=== PATIENT | female | born 1975 | race Caucasian/White ===

== ENCOUNTER 2024-09-06 12:02 | Inpatient (IN) | payer OTHER ==
[2024-09-06 13:43] VITALS: BMI 25.0
[2024-09-06] MEDS ORDERED: METHOCARBAMOL 500 MG TABLET PO PRN (14:03)
[2024-09-06] MEDS ORDERED: DICYCLOMINE HCL 10 MG CAPSULE PO PRN (14:03)
[2024-09-06] MEDS ORDERED: guaiFENesin 600 MG TABLET.ER (FP) PO PRN (14:03)
[2024-09-06] MEDS ORDERED: MAGNESIUM HYDROX 2400MG/30ML ORAL SUSPENSION 30 ML CUP PO PRN (14:03)
[2024-09-06] MEDS ORDERED: BENZONATATE 200 MG CAPSULE PO PRN (14:03)
[2024-09-06] MEDS ORDERED: BISMUTH SUBSALICYLATE 524 MG/30 ML PO PRN (14:03)
[2024-09-06] MEDS ORDERED: BENZOCAINE/MENTHOL (CHLORASEPTIC ) LOZENGE MM PRN (14:03)
[2024-09-06] MEDS ORDERED: LOPERAMIDE HCL 2 MG CAPSULE PO PRN (14:03)
[2024-09-06] MEDS ORDERED: IBUPROFEN 400 MG TABLET (FP) PO PRN (14:03)
[2024-09-06] MEDS ORDERED: NICOTINE POLACRILEX 2 MG LOZENGE BC PRN (14:03)
[2024-09-06] MEDS ORDERED: POLYETHYLENE GLYCOL (HEALTHYLAX) 3350 17 GM PACKET PO PRN (14:03)
[2024-09-06] MEDS ORDERED: ACETAMINOPHEN 325 MG TABLET (FP) PO PRN (14:03)
[2024-09-06] MEDS ORDERED: MAG HYDROX/AL HYDROX/SIMETH 30 ML UNIT-DOSE CUP PO PRN (14:03)
[2024-09-06] MEDS ORDERED: NALOXONE (NYS OPIOID OVERDOSE PROGRAM) 4 MG/0.1 ML SPRAY NS PRN (14:03)
[2024-09-06] MEDS ORDERED: ONDANSETRON *ODT* 4 MG TABLET SL PRN (14:03)
[2024-09-06] MEDS ORDERED: NALOXONE (NARCAN) HCL 4 MG/0.1 ML SPRAY NS PRN (14:03)
[2024-09-06] MEDS ORDERED: cloNIDine HCL 0.1 MG TABLET ONE (17:12)
[2024-09-06] MEDS: NICOTINE 14 MG/24 HOURS TOPICAL PATCH TD SCH (17:35)
[2024-09-06] MEDS: clonazePAM 0.5 MG ODT TABLETS SL ONE (18:03)
[2024-09-06] MEDS: BACLOFEN 10 MG TABLET (FP) PO PRN (18:10)
[2024-09-06] MEDS: cloNIDine HCL 0.1 MG TABLET PO SCH (18:13)
[2024-09-06] MEDS: MELATONIN 5 MG TABLETS PO SCH (22:23)
[2024-09-06] MEDS: THIAMINE 100 MG TABLET PO SCH (22:23)
[2024-09-07] MEDS ORDERED: methaDONE HCL 10 MG TABLET PO ONE (09:27)
[2024-09-07] MEDS: PRENATAL VITAMINS W/ FOLIC ACID TABLET (FP) PO SCH (09:29)
[2024-09-07] MEDS: DOCUSATE SODIUM 100 MG CAPSULE (FP) PO SCH (09:29)
[2024-09-07] MEDS: clonazePAM 1 MG ODT TABLETS SL ONE (09:29)
[2024-09-07] MEDS: IBUPROFEN 600 MG TABLET (FP) PO PRN (09:31)
[2024-09-07] MEDS: NICOTINE POLACRILEX 2 MG GUM BUC PRN (09:50)
[2024-09-07] MEDS: hydrOXYzine PAMOATE 25 MG CAPSULE (FP) PO PRN (14:02)
[2024-09-07] MEDS: LORazepam 1 MG TABLET PO PRN (14:44)
[2024-09-07] MEDS: clonazePAM 1 MG ODT TABLETS SL SCH (17:12)
[2024-09-07] MEDS: QUEtiapine FUMARATE 200 MG TABLET PO SCH (22:12)
[2024-09-08] MEDS ORDERED: cloNIDine HCL 0.1 MG TABLET PO PRN
[2024-09-08] MEDS ORDERED: methaDONE HCL 10 MG TABLET PO SCH (06:00)
[2024-09-08] MEDS: methaDONE HCL 10 MG TABLET PO ONE (09:14)
[2024-09-09] MEDS: methaDONE HCL 10 MG TABLET PO ONE (09:05)
[2024-09-10 08:51] VITALS: RESP 16
[2024-09-10] MEDS: methaDONE HCL 10 MG TABLET PO ONE (09:31)
[2024-09-10 12:23] VITALS: BP 115/69; PULSE 74; TEMP 98
[2024-09-11] MEDS ORDERED: methaDONE HCL 10 MG TABLET PO ONE (10:00)
== END 2024-09-10 14:59 | disposition other institution (70) | DRG 773 ==
LOC: YASAS 12:02 → Y6N 17:22
PROVIDERS: ADMIT Allergy & Immunology; ATTEND Surgery
PROC: HZ2ZZZZ Detoxification Services for Substance Abuse Treatment (ICD-10-PCS; principal; 2024-09-06)
DX: F11.23 Opioid dependence with withdrawal (principal); F13.20 Sedative, hypnotic or anxiolytic dependence, uncomplicated; F17.210 Nicotine dependence, cigarettes, uncomplicated; F19.280 Other psychoactive substance dependence with psychoactive substance-induced anxiety disorder; F19.282 Other psychoactive substance dependence with psychoactive substance-induced sleep disorder; F41.9 Anxiety disorder, unspecified
CPT/HCPCS: 80305; 80307; 87811; J0475

== ENCOUNTER 2024-09-10 15:05 | Inpatient (IN) | payer OTHER ==
[2024-09-10] MEDS ORDERED: BENZOCAINE/MENTHOL (CHLORASEPTIC ) LOZENGE MM PRN (15:54)
[2024-09-10] MEDS ORDERED: BENZONATATE 200 MG CAPSULE PO PRN (15:54)
[2024-09-10] MEDS ORDERED: guaiFENesin 600 MG TABLET.ER (FP) PO PRN (15:54)
[2024-09-10] MEDS ORDERED: NALOXONE (NARCAN) HCL 4 MG/0.1 ML SPRAY NS PRN (15:54)
[2024-09-10] MEDS ORDERED: NICOTINE POLACRILEX 2 MG LOZENGE BC PRN (15:54)
[2024-09-10] MEDS ORDERED: MAGNESIUM HYDROX 2400MG/30ML ORAL SUSPENSION 30 ML CUP PO PRN (15:54)
[2024-09-10] MEDS ORDERED: NALOXONE HCL 0.4 MG/ML VIAL IVPUSH PRN (15:54)
[2024-09-10] MEDS ORDERED: LOPERAMIDE HCL 2 MG CAPSULE PO PRN (15:54)
[2024-09-10] MEDS: clonazePAM 1 MG ODT TABLETS SL ONE (19:33)
[2024-09-10] MEDS: THIAMINE 100 MG TABLET PO SCH (21:46)
[2024-09-10] MEDS: METHOCARBAMOL 500 MG TABLET PO PRN (21:46)
[2024-09-10] MEDS: MELATONIN 5 MG TABLETS PO SCH (21:46)
[2024-09-10] MEDS: QUEtiapine FUMARATE 200 MG TABLET PO SCH (21:46)
[2024-09-10] MEDS ORDERED: TUBERCULIN PPD 5 TU/0.1ML VIAL ID ONE (21:56)
[2024-09-11] MEDS ORDERED: methaDONE HCL 40 MG DISPERSABLE TABLET PO SCH (06:45)
[2024-09-11] MEDS: METHADONE PO SCH (06:51)
[2024-09-11] MEDS: clonazePAM 1 MG ODT TABLETS SL ONE (10:38)
[2024-09-11] MEDS: PRENATAL VITAMINS W/ FOLIC ACID TABLET (FP) PO SCH (10:38)
[2024-09-11] MEDS: IBUPROFEN 600 MG TABLET (FP) PO PRN (10:46)
[2024-09-11] MEDS: clonazePAM 1 MG ODT TABLETS SL SCH (17:09)
[2024-09-11] MEDS: BACLOFEN 10 MG TABLET (FP) PO PRN (17:15)
[2024-09-11] MEDS: diazePAM 5 MG TABLET PO PRN (21:37)
[2024-09-11] MEDS: POLYETHYLENE GLYCOL (HEALTHYLAX) 3350 17 GM PACKET PO PRN (21:40)
[2024-09-12] MEDS: MAG HYDROX/AL HYDROX/SIMETH 30 ML UNIT-DOSE CUP PO PRN (21:51)
[2024-09-13] MEDS: ACETAMINOPHEN 325 MG TABLET (FP) PO PRN (05:48)
[2024-09-13] MEDS: NICOTINE 14 MG/24 HOURS TOPICAL PATCH TD PRN (10:38)
[2024-09-13] MEDS: DOCUSATE SODIUM 100 MG CAPSULE (FP) PO SCH (13:28)
[2024-09-14] MEDS: METHYL SALICYLATE/MENTHOL 30 GM TUBE TP SCH (10:41)
[2024-09-14] MEDS: diazePAM 5 MG TABLET PO PRN (13:59)
[2024-09-14] MEDS: NICOTINE POLACRILEX 2 MG GUM BUC PRN (15:32)
[2024-09-15] MEDS: NICOTINE 21 MG/24 HOURS TOPICAL PATCH TD PRN (10:02)
[2024-09-15] MEDS: hydrOXYzine PAMOATE 50 MG CAPSULE (FP) PO PRN (14:45)
[2024-09-15] MEDS: GABAPENTIN 100 MG CAPSULE PO SCH (21:03)
[2024-09-16] MEDS: NICOTINE 21 MG/24 HOURS TOPICAL PATCH TD SCH (10:03)
[2024-09-17] MEDS: NICOTINE 14 MG/24 HOURS TOPICAL PATCH TD SCH (11:17)
[2024-09-18] MEDS: clonazePAM 1 MG ODT TABLETS SL SCH (18:23)
[2024-09-19] MEDS: IBUPROFEN 400 MG TABLET (FP) PO PRN (19:17)
[2024-09-20] MEDS: BACLOFEN 10 MG TABLET (FP) PO PRN (09:16)
[2024-09-20] MEDS: diazePAM 5 MG TABLET PO PRN (13:39)
[2024-09-20] MEDS: LIDOCAINE 4% PATCH TP SCH (14:01)
[2024-09-20] MEDS: LIDOCAINE PATCH REMOVAL MC SCH (21:48)
[2024-09-22] MEDS: ESCITALOPRAM OXALATE 10 MG TABLET PO SCH (11:07)
[2024-09-23] MEDS: diazePAM 5 MG TABLET PO PRN (12:32)
[2024-09-23] MEDS: BACLOFEN 10 MG TABLET (FP) PO PRN (12:34)
[2024-09-23] MEDS: GABAPENTIN 400 MG CAPSULE PO SCH (14:31)
[2024-09-23] MEDS ORDERED: methaDONE HCL 10 MG TABLET PO SCH (15:56)
[2024-09-24 07:05] VITALS: RESP 18; TEMP 97.1
[2024-09-24] MEDS: NALOXONE (NYS OPIOID OVERDOSE PROGRAM) 4 MG/0.1 ML SPRAY NS SCH (10:37)
[2024-09-24 11:58] VITALS: BP 136/76; PULSE 101
[2024-09-25] MEDS ORDERED: ESCITALOPRAM OXALATE 10 MG TABLET PO SCH (10:00)
== END 2024-09-24 11:00 | disposition left against medical advice (07) | DRG 772 ==
LOC: YASAS 15:05 → Y5N 15:07
PROVIDERS: ADMIT Psychiatry & Neurology Pain Medicine; ATTEND Psychiatry & Neurology Pain Medicine
PROC: HZ42ZZZ Group Counseling for Substance Abuse Treatment, Cognitive-Behavioral (ICD-10-PCS; principal; 2024-09-10)
DX: F11.20 Opioid dependence, uncomplicated (principal); F13.20 Sedative, hypnotic or anxiolytic dependence, uncomplicated; F15.20 Other stimulant dependence, uncomplicated; F12.20 Cannabis dependence, uncomplicated; F17.210 Nicotine dependence, cigarettes, uncomplicated; F19.282 Other psychoactive substance dependence with psychoactive substance-induced sleep disorder; F19.280 Other psychoactive substance dependence with psychoactive substance-induced anxiety disorder; F43.10 Post-traumatic stress disorder, unspecified; F41.9 Anxiety disorder, unspecified; M54.50 Low back pain, unspecified; G89.29 Other chronic pain; F91.8 Other conduct disorders; Z91.199 Patient's noncompliance with other medical treatment and regimen due to unspecified reason
CPT/HCPCS: 80305; J0475